=== PATIENT | female | born 1965 | race African-American/Black ===

== ENCOUNTER 2022-07-20 04:23 | Day surgery (SDC) | payer OTHER ==
[2022-07-16 09:32] VITALS: BMI 28.4
[~2022-07-20 04:23] MED LIST: LIDOCAINE HCL 1%, 10 MG/ML (20ML VIAL) NR ONE
[2022-07-20] MEDS ORDERED: LIDOCAINE HCL 1%, 10 MG/ML (20ML VIAL) ONE (07:30)
[2022-07-20] MEDS ORDERED: PROPOFOL 20 ML ONE (08:49)
[2022-07-20] MEDS ORDERED: MIDAZOLAM HCL 2 MG/2 ML SINGLE DOSE VIAL ONE (08:49)
[2022-07-20] MEDS ORDERED: ceFAZolin SODIUM 1 GM VIAL IVPB ONE ×2 (09:09)
[2022-07-20] MEDS ORDERED: LIDOCAINE HCL 1%, 10 MG/ML (20ML VIAL) NR ONE (09:14)
[2022-07-20 09:46] VITALS: RESP 20
[2022-07-20 11:49] VITALS: BP 116/70; PULSE 68; TEMP 97
== END 2022-07-20 11:25 | disposition home or self-care (01) ==
LOC: JASU-SURG 04:23
PROVIDERS: ATTEND Surgery
PROC: 0JBH0ZZ Excision of Left Lower Arm Subcutaneous Tissue and Fascia, Open Approach (ICD-10-PCS; principal; 2022-07-20 09:00)
DX: D17.22 Benign lipomatous neoplasm of skin and subcutaneous tissue of left arm (principal)
CPT/HCPCS: 88304-TC